=== PATIENT | female | born 1975 | race American Indian/Alaskan Native ===

== ENCOUNTER 2022-04-15 07:27 | Day surgery (SDC) | payer BC ==
[~2022-04-15 07:27] MED LIST: SODIUM CHLORIDE 0.9% 1000 ML 1,000 ML IV SCH
--- NOTE | 2022-04-15 10:50 | Anesthesia Day of Surgery ---
Anesthesia Day of Surgery - Day of Surgery Patient Examined: Yes Patient H&P Reviewed: Yes Patient is NPO: Yes
--- NOTE | 2022-04-15 10:51 | Anesthesia Consultation ---
Anesthesia Consult and Med Hx Date of service: 04/15/22 - Airway Anesthetic Teeth Evaluation: Crowns (One is broken) ROM Head & Neck: Adequate Mental/Hyoid Distance: Adequate Mallampati Class: Class IV Intubation Access Assessment: Possibly Difficult - Pre-Operative Health Status ASA Pre-Surgery Classification: ASA3 Proposed Anesthetic Plan: General - Pulmonary Hx Smoking: No Hx Respiratory Symptoms: No (+2FS) Hx Sleep Apnea: Yes - Cardiovascular System Hx Hypertension: Yes - Central Nervous System Hx Psychiatric Problems: Yes (Fibromyalgia) - Gastrointestinal Hx Ulcer: Yes Hx Gastroesophageal Reflux Disease: No - Endocrine Hx Non-Insulin Dependent Diabetes: Yes (Insulin resistant) Hx Thyroid Disease: Yes Hx Hypothyroidism: Yes - Hematic Hx Sickle Cell Disease: No - Other Systems Hx Obesity: Yes
[2022-04-15] MEDS ORDERED: propofoL 200 MG/20 ML VIAL IV ONE ×2 (11:03→12:22)
[2022-04-15] MEDS ORDERED: fentaNYL 100 MCG/2 ML INJ ONE (11:04)
--- NOTE | 2022-04-15 12:57 | Procedure Note ---
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
--- NOTE | 2022-04-15 12:59 | Post Anesthesia Evaluation ---
- Post Anesthesia Evaluation Patient Participated: Yes Airway Patent: Yes Stable Respiratory Function: Yes Nausea/Vomiting: No Temp > 96.8F: Yes Pain Manageable: Yes Adequeate Hydration: Yes Anesthesia Complications: No Block Receding Appropriately: Not Applicable Patient on Ventilator: No
--- NOTE | 2022-04-15 13:17 | Operative Report ---
DATE OF SURGERY: 04/15/2022 PROCEDURE: EGD with biopsy. INDICATIONS: This is a 47-year-old, slightly obese -[place] female who has been having some nausea, dyspepsia and abdominal pain. EGD was done to make sure there was not any significant upper GI pathology present. DESCRIPTION OF PROCEDURE: Procedure was done after getting informed consent with MAC anesthesia. The instrument was passed through the hypopharynx into the esophagus, which showed some basd-[id number]-[id number] erosive esophagitis. Photodocumentation and biopsy was done from the distal esophagus to assess for the severity of the erosive esophagitis and from the mid esophagus to assess for eosinophilic esophagitis. Stomach showed some multiple small shallow one linear gastric ulcer in the antrum. Photodocumentation and biopsy was obtained from these ulcerated sites as well as from the angular incisura and gastric body to rule out for H. pylori and atrophic gastritis. There was minimal bleeding from the biopsy sites. The pylorus was patent. The duodenum in the first and second portion appeared normal. ASSESSMENT: Abdominal pain, dyspepsia, nausea, multiple shallow gastric ulcers noted in the antrum, gastritis, mild to moderate erosive esophagitis, rule out eosinophilic esophagitis. PLAN: To treat the patient with PPI. Await for the biopsy results, as the patient is positive for H. pylori, the patient will be treated for that. The patient will be advised to refrain from using aspirin and aspirin-related products for the next few days. A colonoscopy will be done as part of colon polyp screening because the patient has an underlying family history of cancer. Procedure was done in the GI lab with assistance of the GI lab team, which included the GI nurse, the certified performance technologist and with assistance of anesthesia. TID: [id number] RECEIPT: [id number] SEN/DUTCH
--- NOTE | 2022-04-15 13:28 | Operative Report ---
DATE OF SURGERY: 04/15/2022 PROCEDURE PERFORMED: Colonoscopy with biopsy. INDICATIONS: This is a 47-year-old -[place] female who had been having abdominal pain, dyspepsia, nausea and some lower GI bleeding and a family history of cancer. She has a first cousin that had breast cancer. EGD showed multiple shallow gastric ulcers in the antrum as well as mild to moderate erosive esophagitis. Colonoscopy was done to make sure there was not any significant lower GI pathology present. DESCRIPTION OF PROCEDURE: Procedure was done after getting informed consent with MAC anesthesia. Initial rectal exam was unremarkable. The instrument was passed through the rectum onto the cecum, which was identified with ileocecal valve and appendiceal orifice. 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 Photodocumentation and biopsy was obtained. The remaining part of the cecum, ascending colon, transverse colon, descending colon, and sigmoid showed normal mucosa. There was no evidence of any polyps, colitis or diverticular disease. The rectum showed mild to moderate internal hemorrhoids, not significant enough for banding, which may have been the cause of the patient's hematochezia. ASSESSMENT: Colon polyp screening, family history of cancer. The patient has a family history of breast cancer. The patient's first cousin had breast cancer. Hematochezia secondary to [id number] internal hemorrhoids, not significant enough for banding. No colon polyps noted. No diverticular disease noted. 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 PLAN: To treat the patient with [id number] hemorrhoidal medications, have the patient avoid aspirin and aspirin-related products for the next few days. The patient is to be treated with PPI because of the EGD findings, shallow multiple gastric ulcers and asked to follow up in the office in 1-2 weeks' time. Procedure was done in the GI lab with assistance of the GI lab team which included the GI nurse, the household appliances service technician and with assistance of Anesthesia. TID: [id number] RECEIPT: [id number] SEN/TRINITY
[2022-04-15 13:46] VITALS: BP 110/81
== END 2022-04-15 13:55 | disposition home or self-care (01) ==
LOC: GIO 07:27
DX: R19.4 Change in bowel habit (principal); R10.9 Unspecified abdominal pain; K64.8 Other hemorrhoids; R11.0 Nausea; K21.00 Gastro-esophageal reflux disease with esophagitis, without bleeding; K29.70 Gastritis, unspecified, without bleeding; E11.9 Type 2 diabetes mellitus without complications; D17.79 Benign lipomatous neoplasm of other sites; I10 Essential (primary) hypertension; G47.30 Sleep apnea, unspecified; E66.9 Obesity, unspecified; E03.9 Hypothyroidism, unspecified; M79.7 Fibromyalgia; K63.89 Other specified diseases of intestine; Z80.3 Family history of malignant neoplasm of breast; Z79.899 Other long term (current) drug therapy; Z68.34 Body mass index [BMI] 34.0-34.9, adult; Z88.8 Allergy status to other drugs, medicaments and biological substances
CPT/HCPCS: 43239; 45380; 82962; 88305; 88342; J2704; J3010; J7030; 88304